=== PATIENT | female | born 1940 | race American Indian/Alaskan Native ===

== ENCOUNTER 2017-03-19 17:24 | Inpatient (IN) | payer MEDICARE ==
--- NOTE | 2017-03-19 17:51 | C.PDOC ---
History Of Present Illness Patient is a 76 y/o female, whose past medical history includes diverticulitis, HTN, and hypercholesterolemia, is sent to the emergency department by PMD, Dr. Azevedo, for admission. Patient complains of worsening left sided abdominal pain that radiates to the back since yesterday. Notes taking antibiotics but states her pain still persists. Pt was admitted here 5 months ago for Diverticulitis. Otherwise, denies any n/v/d, or fever. Time Seen by Provider: 03/19/17 17:37 Chief Complaint (Nursing): Abdominal Pain History Per: Patient History/Exam Limitations: no limitations Onset/Duration Of Symptoms: Days Current Symptoms Are (Timing): Still Present Location Of Pain/Discomfort: LUQ, LLQ Radiation Of Pain To:: Back Quality Of Discomfort: "Pain" Associated Symptoms: denies: Fever, Chills, Nausea, Vomiting, Diarrhea, Loss Of Appetite, Chest Pain, Constipation, Urinary Symptoms Exacerbating Factors: None Alleviating Factors: None Recent travel outside of the [place]: No Additional History Per: Patient Abnormal Vaginal Bleeding: No Past Medical History Reviewed: Historical Data, Nursing Documentation, Vital Signs Vital Signs: Last Vital Signs Temp 98.6 F 03/19/17 17:28 Pulse 88 03/19/17 17:28 Resp 18 03/19/17 17:28 BP 134/84 03/19/17 17:28 Pulse Ox 98 03/19/17 18:47 - Medical History PMH: Arthritis, Asthma, Bronchitis, COPD, Diverticulitis (current DX), HTN, Hypercholesterolemia, Hyperthyroidism Denies: Alzheimer's Disease, Anemia, Anxiety, Atrial Fibrillation, Bipolar Disorder, Cardia Arrhythmia, CHF, Crohn's Disease, Dementia, Depression, Emphysema, Fractures, Gastritis, Gall Bladder Disease, HIV, Hypothyroidism, Kidney Stones, Migraine, Mitral Valve Prolapse, Multiple Sclerosis, Osteoporosis , Pancreatitis, Paranoia, Parkinson's Disease, Peripheral Edema, Pneumonia, Post Traumatic Stress Disorder, Pulmonary Embolism, Chronic Kidney Disease, Rheumatoid Arthritis, Schizophrenia, Seizures, Sickle Cell Disease, Sexually Transmitted Disease, Sleep Apnea, TIA Surgical History: Cholecystectomy Denies: Appendectomy, CABG, Carotid Endarterectomy, Coronary Stent, Pacemaker , Tonsillectomy - [facility] Procedures EXCISION OF RECTUM, ENDO, DIAGN (10/14/16) EXCISION OF SMALL INTESTINE, ENDO, DIAGN (10/14/16) Family History: States: Unknown Family Hx - Social History Hx Tobacco Use: Yes Hx Alcohol Use: No Hx Substance Use: No - Immunization History Hx Tetanus Toxoid Vaccination: Yes (unsure) Hx Influenza Vaccination: Yes Hx Pneumococcal Vaccination: Yes Review Of Systems Except As Marked, All Systems Reviewed And Found Negative. Constitutional: Negative for: Fever, Chills Cardiovascular: Negative for: Chest Pain, Palpitations Respiratory: Negative for: Shortness of Breath Gastrointestinal: Positive for: Abdominal Pain. Negative for: Nausea, Vomiting , Diarrhea, Constipation Musculoskeletal: Positive for: Back Pain Skin: Negative for: Rash Neurological: Negative for: Weakness, Numbness Physical Exam - Physical Exam Appears: Non-toxic, No Acute Distress Skin: Normal Color, Warm, Dry Head: Atraumatic, Normacephalic Eye(s): bilateral: Normal Inspection Neck: Normal ROM, Supple Chest: Symmetrical Cardiovascular: Rhythm Regular, No Murmur Respiratory: Normal Breath Sounds, No Rales, No Rhonchi, No Wheezing Gastrointestinal/Abdominal: Soft, Tenderness (tenderness to left side of abdomen ), No Guarding, No Rebound Extremity: Bilateral: Atraumatic, Normal ROM Neurological/Psych: Oriented x3, Normal Speech, Normal Cognition ED Course And Treatment - Laboratory Results Result Diagrams: 03/19/17 18:17 03/19/17 18:38 Lab Interpretation: No Acute Changes ECG: Interpreted By Pa ECG Rhythm: Sinus Tachycardia, Nonspecific Changes ECG Interpretation: No Acute Changes Rate From EC O2 Sat by Pulse Oximetry: 98 Pulse Ox Interpretation: Normal Progress Note: Blood work, urinalysis, Abd & pelvis CT, EKG ordered and reviewed. Patient was treated with Morphine, Flagyl, Cipro, and IV fluids. Patient refusing contrast Reassessment Condition: Improved - Physician Consult Information Physician Contacted: Trav Azevedo Outcome Of Conversation: admit Disposition Discussed With : Trav Azevedo Doctor Will See Patient In The: Hospital - Disposition Disposition: HOSPITALIZED Disposition Time: 18:30 Condition: STABLE - POA Present On Arrival: None - Clinical Impression Clinical Impression: Abdominal pain, Diverticulitis - PA / APICULTURIST / Resident Statement MD/DO has reviewed & agrees with the documentation as recorded. - Scribe Statement The provider has reviewed the documentation as recorded by the Vinhibember Larsen All medical record entries made by the Scribe were at my direction and personally dictated by me. I have reviewed the chart and agree that the record accurately reflects my personal performance of the history, physical exam, medical decision making, and the department course for this patient. I have also personally directed, reviewed, and agree with the discharge instructions and disposition.
[2017-03-19] MEDS ORDERED: Sodium Chloride 0.9% 1,000 ML IV ONE (17:54)
[2017-03-19] MEDS ORDERED: Ciprofloxacin 400mg/200ml D5W 400 MG/200 ML BAG IV STA (17:55)
[2017-03-19] MEDS ORDERED: metroNIDAZOLE IV 500 mg/100 ml 500 MG/100 ML BAG IV SCH (18:00)
[2017-03-19] MEDS ORDERED: Ciprofloxacin 400mg/200ml D5W 400 MG/200 ML BAG IVPB ONE (18:11)
[2017-03-19] MEDS ORDERED: Morphine 4 MG/ML VIAL ONE (18:11)
[2017-03-19] MEDS ORDERED: metroNIDAZOLE IV 500 mg/100 ml 500 MG/100 ML BAG ONE (18:12)
[2017-03-19] MEDS ORDERED: Sodium Chloride 0.9% 1,000 ML ONE (18:12)
[2017-03-19 18:14] LABS: BASO % 0.7 % (0.0-2.0); EOS # 0.2 K/uL (0.0-0.7); EOS % 2.7 % (0.0-4.0); HEMOGLOBIN 13.8 g/dL (11.0-16.0); LYMPH # 1.9 K/uL (1.0-4.3); LYMPH % 31.5 % (20.0-40.0); MEAN CELL VOLUME 86.7 fL (81.0-99.0); MEAN CORPUSCULAR HEMOGLOBIN 28.2 pg (27.0-31.0); MEAN CORPUSCULAR HGB CONC 32.5 g/dL (33.0-37.0); MEAN PLATELET VOLUME 8.6 fL (7.2-11.7); MONO # 0.4 K/uL (0.0-0.8); MONO % 6.1 % (0.0-10.0); NEUT # 3.5 K/uL (1.8-7.0); RBC 4.9 Mil/uL (3.80-5.20); RED CELL DISTRIBUTION WIDTH 15.1 % (11.5-14.5)
[2017-03-19 18:16] LABS: SQUAMOUS EPITHIAL 5 /hpf (0-5); URINE BACTERIA RARE (<OCC); URINE BILIRUBIN NEGATIVE (NEGATIVE); URINE BLOOD NEGATIVE (NEGATIVE); URINE CLARITY Clear (Clear); URINE COLOR Yellow (YELLOW); URINE GLUCOSE (UA) NORMAL (Normal); URINE LEUKOCYTE ESTERASE NEG Leu/uL (Negative); URINE NITRATE NEGATIVE (NEGATIVE); URINE PROTEIN NEGATIVE (NEGATIVE); URINE UROBILINOGEN NORMAL mg/dL (0.2-1.0)
[2017-03-19 18:43] LABS: ALBUMIN 3.7 g/dL (3.5-5.0)
[2017-03-19 18:45] LABS: GFR AFRICAN-AMERICAN > 60; GFR NON-AFRICAN AMERICAN > 60
[2017-03-19 18:46] LABS: ALB/GLOB RATIO 1.1 (1.0-2.1); ALT/SGPT 19 U/L (9-52); AST/SGOT 26 U/L (14-36); BLOOD UREA NITROGEN 12 mg/dL (7-17); LIPASE 40 U/L (23-300)
[2017-03-19 18:47] LABS: CALCIUM 8.9 mg/dl (8.6-10.4)
[2017-03-19] MEDS ORDERED: Oxycodone/Acetaminophen 5/325 mg Tab PO PRN (19:27)
[2017-03-19] MEDS ORDERED: Oxycodone/Acetaminophen 5/325 mg Tab ONE (19:46)
--- NOTE | 2017-03-19 19:56 | CT ---
EXAM: CT Abdomen and Pelvis Without Intravenous Contrast CLINICAL HISTORY: 76 years old, female; Pain; Abdominal pain; Generalized TECHNIQUE: Axial computed tomography images of the abdomen and pelvis without intravenous contrast. This CT exam was performed using one or more of the following dose reduction techniques: automated exposure control, adjustment of the mA and/or kV according to patient size, and/or use of iterative reconstruction technique. Coronal and sagittal reformatted images were created and reviewed. EXAM DATE/TIME: 03/19/2017 5:55 PM COMPARISON: No relevant prior studies available. FINDINGS: LIMITATIONS: Moderate streak/motion artifact. LOWER THORAX: Coronary artery calcification. ABDOMEN: LIVER: No acute abnormality of the liver identified. GALLBLADDER AND BILE DUCTS: Cholecystectomy clips. Biliary ductal dilatation, which may be related to the post cholecystectomy state. No radiopaque common bile duct stones are visualized. Recommend correlation with LFTs as clinically indicated. PANCREAS: No CT evidence of acute pancreatitis. SPLEEN: No acute abnormality of the spleen identified. ADRENALS: No acute abnormality of the adrenal glands identified. KIDNEYS AND URETERS: No acute abnormality of the kidneys seen. STOMACH AND BOWEL: Segmental wall thickening of the proximal sigmoid colon. Mild infiltration of fat abutting the proximal sigmoid colon, near a diverticulum, with nearby mild left retroperitoneal thickening. Findings are best seen on image 78 of series 602, and are suspicious for mild acute sigmoid diverticulitis, less likely focal sigmoid colitis. Extensive diverticulosis of the colon is noted. Otherwise, no significant abnormality of the bowel is identified, allowing for motion artifact. No evidence of bowel obstruction. APPENDIX: Appendix is seen, and is within normal limits in appearance. PELVIS: BLADDER: No acute abnormality of the bladder identified. REPRODUCTIVE: No acute abnormality of the reproductive organs is seen. ABDOMEN and PELVIS: INTRAPERITONEAL SPACE: No evidence of free intraperitoneal air or fluid. BONES/JOINTS: No acute fractures or other acute bony abnormality noted. SOFT TISSUES: No acute abnormality of the visualized soft tissues is seen. VASCULATURE: No evidence of abdominal aortic aneurysm. No evidence of periaortic hemorrhage. LYMPH NODES: No evidence of diffuse lymphadenopathy. IMPRESSION: - Findings suspicious for mild acute diverticulitis of the sigmoid colon, less likely focal sigmoid colitis. No evidence of perforation or abscess formation. - See above for remaining findings.
[2017-03-19] MEDS: Ciprofloxacin 400mg/200ml D5W 400 MG/200 ML BAG IVPB SCH (20:56)
[2017-03-19] MEDS: metroNIDAZOLE IV 250mg/50 ml 250 MG/50 ML BAG IVPB SCH (21:26)
[2017-03-19] MEDS ORDERED: metroNIDAZOLE IV 500 mg/100 ml 250 MG in Premixed IV 1 EA IVPB SCH (22:00)
[2017-03-20] MEDS: Dextrose 5%/0.45% NS 1,000 ML IV SCH ×3 (00:04→19:22)
[2017-03-20] MEDS: metroNIDAZOLE IV 250mg/50 ml 250 MG/50 ML BAG IVPB SCH ×3 (05:46→23:40)
[2017-03-20 07:22] LABS: HDL CHOLESTEROL 50 mg/dL (30-70)
[2017-03-20 07:33] LABS: LDL CHOLESTEROL 106 mg/dL (0-129)
[2017-03-20] MEDS: Ciprofloxacin 400mg/200ml D5W 400 MG/200 ML BAG IVPB SCH ×2 (09:16→19:21)
--- NOTE | 2017-03-20 10:45 | CP.PCM.CON ---
History of Present Illness - History of Present Illness History of Present Illness: 76 yo AA female known to me from 10/18 admission developed two days h/o LLQ pain and constipation. CT SCan shows sigmoid diverticulitis. Had similar admission with rectal bleeding in Oct. Has not been seen in follow up. EGD at that time showed HH and gastritis. No colonoscopy was done. She was tyreated with abx but never followed up in the office as instructed. Pain is better since admission but still with spasms. Not compliant with diverticular disease diet as outpatient. Eats many nuts. Review of Systems - Constitutional Constitutional: Weight Gain - Cardiovascular Cardiovascular: absent: Chest Pain, Dyspnea, Leg Edema, Palpitations - Respiratory Respiratory: absent: Cough, Hemoptysis - Gastrointestinal Gastrointestinal: As Per HPI Past Patient History - Infectious Disease Hx of Infectious Diseases: None - Past Medical History & Family History Past Medical History?: Yes - Past Social History Smoking Status: Light Smoker < 10 Cigarettes Daily Alcohol: None Drugs: Denies Home Situation {Lives}: With Family - CARDIAC Hx Atrial Fibrillation: No Hx Cardia Arrhythmia: No Hx Congestive Heart Failure: No Hx Hypercholesterolemia: Yes Hx Hypertension: Yes Hx Mitral Valve Prolapse: No Hx Pacemaker: No Hx Peripheral Edema: No - PULMONARY Hx Asthma: Yes Hx Bronchitis: Yes Hx Chronic Obstructive Pulmonary Disease (COPD): Yes Hx Emphysema: No Hx Pneumonia: No Hx Pulmonary Embolism: No Hx Sleep Apnea: No - NEUROLOGICAL Hx Alzheimer's Disease: No Hx Dementia: No Hx Migraine: No Hx Multiple Sclerosis: No Hx Parkinson's Disease: No Hx Seizures: No Hx Transient Ischemic Attacks (TIA): No - HEENT Hx HEENT Problems: Yes Hx Blind: No Hx Cataracts: No Hx Deafness: No Hx Difficulty Chewing: No Hx Epistaxis: No Hx Glaucoma: No Hx Macular Degeneration: No Other/Comment: poor vision without eyeglasses - RENAL Hx Chronic Kidney Disease: No Hx Kidney Stones: No - ENDOCRINE/METABOLIC Hx Hyperthyroidism: Yes Hx Hypothyroidism: No - HEMATOLOGICAL/ONCOLOGICAL Hx Anemia: No Hx Cirrhosis: No Hx Hepatitis A: No Hx Hepatitis B: No Hx Hepatitis C: No Hx Human Immunodeficiency Virus (HIV): No Hx Sickle Cell Disease: No - INTEGUMENTARY Hx Dermatological Problems: No Hx Basil Cell: No Hx Lala: No Hx Cellulitis: No Hx Eczema: No Hx Melanoma: No Hx Psoriasis: No Hx Squamous Cell: No - MUSCULOSKELETAL/RHEUMATOLOGICAL Hx Falls: No - GASTROINTESTINAL Hx Gastrointestinal Disorders: Yes Hx Bowel Surgery: No Hx Clostridium Difficile: No Hx Colitis: No Hx Colostomy: No Hx Constipation: Yes Hx Crohn's Disease: No Hx Diarrhea: No Hx Diverticulitis: Yes (admitted in 10/2016) Hx Esophageal Varices: No Hx Fatty Liver Disease: No Hx Gall Bladder Disease: No Hx Gastritis: Yes Hx Gastroesophageal Reflux: Yes Hx Hemorrhoids: No Hx Ileostomy: No Hx Irritable Bowel: No Hx Liver Failure: No Hx Nausea: No Hx Pancreatitis: No HX Swallowing Problems: No Hx Ulcer: No Hx Vomiting: No - GENITOURINARY/GYNECOLOGICAL Hx Genitourinary Disorders: No Hx Sexually Transmitted Disorders: No - PSYCHIATRIC Hx Substance Use: No - SURGICAL HISTORY Hx Appendectomy: No Hx Carotid Endarterectomy: No Hx Cholecystectomy: Yes Hx Coronary Artery Bypass Graft: No Hx Coronary Stent: No Hx Tonsillectomy: No - ANESTHESIA Hx Anesthesia: Yes Hx Anesthesia Reactions: No Hx Malignant Hyperthermia: No Meds Allergies/Adverse Reactions: Allergies Allergy/AdvReac Type Severity Reaction Status Date / Time azithromycin Allergy Intermediate ITCHING Verified 03/19/17 17:33 Penicillins Allergy Verified 03/19/17 17:33 Sulfa (Sulfonamide Allergy Verified 03/19/17 17:33 Antibiotics) piperacillin sodium AdvReac Verified 03/19/17 17:33 [From Zosyn] tazobactam sodium AdvReac Verified 03/19/17 17:33 [From Zosyn] steroids Allergy Severe RASH Uncoded 03/19/17 17:33 - Medications Medications: Current Medications Heparin Sodium (Porcine) (Heparin) 5,000 units SC Q12 ALEXANDRA Last Admin: 03/20/17 09:26 Dose: 5,000 units Ciprofloxacin (Cipro 400mg/200ml Dsw) 400 mg in 200 mls @ 133 mls/hr IVPB Q12H ALEXANDRA Last Admin: 03/20/17 09:16 Dose: 133 mls/hr Metronidazole (Flagyl) 250 mg in 50 mls @ 100 mls/hr IVPB Q8 ALEXANDRA Stop: 03/24/17 22:01 Last Admin: 03/20/17 05:46 Dose: 100 mls/hr Dextrose/Sodium Chloride (Dextrose 5%/0.45% Ns 1000 Ml) 1,000 mls @ 75 mls/hr IV .[id number] [facility] Last Admin: 03/20/17 00:04 Dose: 75 mls/hr Oxycodone/Acetaminophen (Percocet 5/325 Mg Tab) 1 tab PO Q6H PRN PRN Reason: abdominal pain Stop: 03/22/17 19:28 Last Admin: 03/19/17 19:48 Dose: 1 tab Pantoprazole Sodium (Protonix Inj) 40 mg IVP DAILY [facility] Last Admin: 03/20/17 09:17 Dose: 40 mg Physical Exam - Constitutional Appears: No Acute Distress - Head Exam Head Exam: ATRAUMATIC, NORMOCEPHALIC - Eye Exam Eye Exam: EOMI, PERRL - Respiratory Exam Respiratory Exam: NORMAL BREATHING PATTERN - Cardiovascular Exam Cardiovascular Exam: REGULAR RHYTHM, +S1 - GI/Abdominal Exam GI & Abdominal Exam: Normal Bowel Sounds, Soft. absent: Distended, Mass, Rebound, Rigid, Tenderness - Rectal Exam Rectal Exam: Deferred - Extremities Exam Extremities exam: Positive for: normal inspection - Back Exam Back exam: NORMAL INSPECTION - Neurological Exam Neurological exam: Alert, Oriented x3 - Psychiatric Exam Psychiatric exam: Normal Affect, Normal Mood - Skin Skin Exam: Dry, Warm Results - Vital Signs Recent Vital Signs: Last Vital Signs Temp 97.6 F 03/20/17 07:56 Pulse 63 03/20/17 07:56 Resp 20 03/20/17 07:56 BP 149/80 03/20/17 00:00 Pulse Ox 95 03/20/17 07:56 - Labs Result Diagrams: 03/19/17 18:17 03/19/17 18:38 Labs: Laboratory Results - last 24 hr 03/19/17 03/19/17 03/20/17 18:19 18:38 06:25 ESR Sodium 144 Potassium 4.0 Chloride 104 Carbon Dioxide 28 Anion Gap 16 BUN 12 Creatinine 0.9 Est GFR ( Amer) > 60 Est GFR (Non-Af Amer) > 60 Random Glucose 112 H Hemoglobin A1c 6.8 H Calcium 8.9 Total Bilirubin 0.6 AST 26 ALT 19 Alkaline Phosphatase 70 Total Protein 7.1 Albumin 3.7 Globulin 3.4 Albumin/Globulin Ratio 1.1 Triglycerides Cholesterol LDL Cholesterol Direct HDL Cholesterol Lipase 40 Free T4 Urine Color Yellow Urine Clarity Clear Urine pH 5.0 Ur Specific [place] 1.020 Urine Protein Negative Urine Glucose (UA) Normal Urine Ketones Negative Urine Blood Negative Urine Nitrate Negative Urine Bilirubin Negative Urine Urobilinogen Normal Ur Leukocyte Esterase Neg Urine WBC (Auto) < 1 Urine RBC (Auto) 2 Ur Squamous Epith Cells 5 Urine Bacteria Rare 03/20/17 03/20/17 03/20/17 06:25 06:25 06:25 ESR 28 H Sodium Potassium Chloride Carbon Dioxide Anion Gap BUN Creatinine Est GFR ( Amer) Est GFR (Non-Af Amer) Random Glucose Hemoglobin A1c Calcium Total Bilirubin AST ALT Alkaline Phosphatase Total Protein Albumin Globulin Albumin/Globulin Ratio Triglycerides 52 D Cholesterol 175 LDL Cholesterol Direct 106 HDL Cholesterol 50 Lipase Free T4 0.54 L Urine Color Urine Clarity Urine pH Ur Specific [place] Urine Protein Urine Glucose (UA) Urine Ketones Urine Blood Urine Nitrate Urine Bilirubin Urine Urobilinogen Ur Leukocyte Esterase Urine WBC (Auto) Urine RBC (Auto) Ur Squamous Epith Cells Urine Bacteria - Imaging and Cardiology CT scan - abdomen Status: Image reviewed by me, Report reviewed by me Assessment & Plan (1) LLQ abdominal pain Assessment and Plan: as below Status: Acute (2) GERD (gastroesophageal reflux disease) Assessment and Plan: GERD diet and PPI as needed No current symptoms Status: Chronic (3) Diverticulitis Assessment and Plan: Agree with IV antibiotics until pain free and then continue po for 10-14 day course Begin clear liquids and advance diet. Will need colonoscopy as outpatient in 8 weeks. Will be encouraged to follow up with me after discharge (discussed with Dr Azevedo at bedside as well) Status: Acute
[2017-03-20 14:57] LABS: ALBUMIN 3.1 g/dL (3.5-5.0)
[2017-03-20 15:00] LABS: ALB/GLOB RATIO 1.1 (1.0-2.1); ALT/SGPT 51 U/L (9-52); AST/SGOT 75 U/L (14-36); BLOOD UREA NITROGEN 10 mg/dL (7-17); GFR AFRICAN-AMERICAN > 60; GFR NON-AFRICAN AMERICAN > 60
[2017-03-20 15:01] LABS: CALCIUM 7.9 mg/dl (8.6-10.4)
[2017-03-20 15:23] LABS: AMYLASE 40 U/L (30-110); LIPASE 22 U/L (23-300)
--- NOTE | 2017-03-20 15:23 | CP.PCM.CON ---
History of Present Illness - History of Present Illness History of Present Illness: 76yr old AA descent lady was seen today as she was admitted with severe abdominal pain and she says she was severely ill yesterday,today she feels little better. She says she ate spicy food as she attended a barbeque on Friday and ate same spicy food on Friday. She seems to not know that fruits with tiny seeds and nuts to be avoided. She likes Hot dogs. She denies any constipation She says she had similar episode in October and got better, She did not follow with GI at that time.She deneis any nausea ,vomiting at present and was started on clear liquids.She also says she may have had something before 25 yrs Review of Systems - Constitutional Constitutional: absent: As Per HPI, Anorexia, Chills, Daytime Sleepiness, Excessive Sweating, Fatigue, Fever, Frequent Falls, Headache, Increased Appetite , Lethargy, Malaise, Night Sweats, Snoring, Sleep Apnea, Weight Gain, Weight Loss, Weakness, Other - EENT Eyes: absent: As Per HPI, Blind Spots, Blurred Vision, Change in Vision, Decreased Night Vision, Diplopia, Discharge, Dry Eye, Exophthalmos, Floaters, Irritation, Itchy Eyes, Loss of Peripheral Vision, Pain, Photophobia, Requires Corrective Lenses, Sees Flashes, Spots in Vision, Tunnel Vision, Other Visual Disturbances, Loss of Vision, Other Nose/Mouth/Throat: absent: As Per HPI, Epistaxis, Nasal Congestion, Nasal Discharge, Nasal Obstruction, Nasal Trauma, Nose Pain, Post Nasal Drip, Sinus Pain, Sinus Pressure, Bleeding Gums, Change in Voice, Dental Pain, Dry Mouth, Dysphagia, Halitosis, Hoarsness, Lip Swelling, Mouth Lesions, Mouth Pain, Odynophagia, Sore Throat, Throat Swelling, Tongue Swelling, Facial Pain, Neck Pain, Neck Mass, Other - Cardiovascular Cardiovascular: absent: As Per HPI, Acrocyanosis, Chest Pain, Chest Pain at Rest , Chest Pain with Activity, Claudication, Diaphoresis, Dyspnea, Dyspnea on Exertion, Edema, Irregular Heart Rhythm, Pain Radiating to Arm/Neck/Jaw, Leg Edema, Leg Ulcers, Lightheadedness, Orthopnea, Palpitations, Paroxysmal Nocturnal Dyspnea, Pedal Edema, Radiating Pain, Rapid Heart Rate, Slow Heart Rate, Syncope, Other - Respiratory Respiratory: absent: As Per HPI, Cough, Dyspnea, Hemoptysis, Dyspnea on Exertion , Wheezing, Snoring, Stridor, Pain on Inspiration, Chest Congestion, Excessive Mucous Production, Change in Mucous Color, Pain with Coughing, Other - Gastrointestinal Gastrointestinal: Abdominal Pain, Cramping. absent: As Per HPI, Belching, Bloating, Change in Bowel Habits, Change in Stool Character, Coffee Ground Emesis, Constipation, Diarrhea, Dyspepsia, Dysphagia, Early Satiety, Excessive Flatus, Fecal Incontinence, Heartburn, Hematemesis, Hematochezia, Loose Stools, Melena, Nausea, Odynophagia, Temesmus, Vomiting, Other - Genitourinary Genitourinary: absent: As Per HPI, Change in Urinary Stream, Difficulty Urinating, Dysuria, Flank Pain, Hematuria, Pyuria, Nocturia, Urinary Incontinence, Urinary Frequency, Urinary Hesitance, Urinary Urgency, Voiding Freq/Small Amts, Freq UTI, Hx Renal/Bladder Calculi, Hx /Renal Surgery, Bladder Distension, Other - Reproductive: Female Reproductive:Female: Post Menopausal Additional comments: n/a - Musculoskeletal Musculoskeletal: absent: As Per HPI, Abnormal Gait, Arthralgias, Atrophy, Back Pain, Deformity, Joint Swelling, Limited Range of Motion, Loss of Height, Muscle Cramps, Muscle Weakness, Myalgias, Neck Pain, Numbness, Radiating Pain into Limb, Stiffness, Tingling, Other - Integumentary Integumentary: absent: As Per HPI, Acne, Alopecia, Bleeding Lesions, Change in Hair, Change in Nails, Change in Pigmentation, Changing Lesions, Dry Skin, Erythema, Furuncle, Hirsutism, Lesions, New Lesions, Non-Healing Lesions, Photosensitivity, Pruritus, Rash, Skin Pain, Skin Ulcer, Sores, Striae, Swelling , Unusual Bruising, Wounds, Jaundice, Other - Neurological Neurological: absent: As Per HPI, Abnormal Gait, Abnormal Hearing, Abnormal Movements, Abnormal Speech, Behavioral Changes, Burning Sensations, Confusion, Convulsions, Disequilibrium, Dizziness, Numbness, Focal Weakness, Frequent Falls , Headaches, Lack of Coordination, Loss of Vision, Memory Loss, Paresthesias, Radicular Pain, Restless Legs, Sensory Deficit, Syncope, Tingling, Tremor, Vertigo, Weakness, Other Visual Disturbances, Other - Psychiatric Psychiatric: absent: As Per HPI, Abnormal Sleep Pattern, Anhedonia, Anxiety, Auditory Hallucinations, Behavioral Changes, Change in Appetite, Change in Libido, Confusion, Depression, Difficulty Concentrating, Hallucinations, Homicidal Ideation, Hopelessness, Irritability, Memory Loss, Mood Swings, Panic Attacks, Paranoia, Suicidal Ideation, Visual Hallucinations, Tactile Hallucinations, Other - Endocrine Endocrine: absent: As Per HPI, Change in Body Appearance, Change in Libido, Cold Intolorance, Deepening of Voice, Excessive Sweating, Fatigue, Flushing, Heat Intolorance, Increase in Ring/Shoe/Hat Size, Palpitations, Polydipsia, Polyphagia, Polyuria, Other - Hematologic/Lymphatic Hematologic: absent: As Per HPI, Easy Bleeding, Easy Bruising, Lymphadenopathy, Other Past Patient History - Infectious Disease Hx of Infectious Diseases: None - Past Medical History & Family History Past Medical History?: Yes - Past Social History Smoking Status: Light Smoker < 10 Cigarettes Daily Alcohol: None Drugs: Denies Home Situation {Lives}: With Family - CARDIAC Hx Atrial Fibrillation: No Hx Cardia Arrhythmia: No Hx Congestive Heart Failure: No Hx Hypercholesterolemia: Yes Hx Hypertension: Yes Hx Mitral Valve Prolapse: No Hx Pacemaker: No Hx Peripheral Edema: No - PULMONARY Hx Asthma: Yes Hx Bronchitis: Yes Hx Chronic Obstructive Pulmonary Disease (COPD): Yes Hx Emphysema: No Hx Pneumonia: No Hx Pulmonary Embolism: No Hx Sleep Apnea: No - NEUROLOGICAL Hx Alzheimer's Disease: No Hx Dementia: No Hx Migraine: No Hx Multiple Sclerosis: No Hx Parkinson's Disease: No Hx Seizures: No Hx Transient Ischemic Attacks (TIA): No - HEENT Hx HEENT Problems: Yes Hx Blind: No Hx Cataracts: No Hx Deafness: No Hx Difficulty Chewing: No Hx Epistaxis: No Hx Glaucoma: No Hx Macular Degeneration: No Other/Comment: poor vision without eyeglasses - RENAL Hx Chronic Kidney Disease: No Hx Kidney Stones: No - ENDOCRINE/METABOLIC Hx Hyperthyroidism: Yes Hx Hypothyroidism: No - HEMATOLOGICAL/ONCOLOGICAL Hx Anemia: No Hx Cirrhosis: No Hx Hepatitis A: No Hx Hepatitis B: No Hx Hepatitis C: No Hx Human Immunodeficiency Virus (HIV): No Hx Sickle Cell Disease: No - INTEGUMENTARY Hx Dermatological Problems: No Hx Basil Cell: No Hx Lala: No Hx Cellulitis: No Hx Eczema: No Hx Melanoma: No Hx Psoriasis: No Hx Squamous Cell: No - MUSCULOSKELETAL/RHEUMATOLOGICAL Hx Falls: No - GASTROINTESTINAL Hx Gastrointestinal Disorders: Yes Hx Bowel Surgery: No Hx Clostridium Difficile: No Hx Colitis: No Hx Colostomy: No Hx Constipation: Yes Hx Crohn's Disease: No Hx Diarrhea: No Hx Diverticulitis: Yes (admitted in 10/2016) Hx Esophageal Varices: No Hx Fatty Liver Disease: No Hx Gall Bladder Disease: No Hx Gastritis: Yes Hx Gastroesophageal Reflux: Yes Hx Hemorrhoids: No Hx Ileostomy: No Hx Irritable Bowel: No Hx Liver Failure: No Hx Nausea: No Hx Pancreatitis: No HX Swallowing Problems: No Hx Ulcer: No Hx Vomiting: No - GENITOURINARY/GYNECOLOGICAL Hx Genitourinary Disorders: No Hx Sexually Transmitted Disorders: No - PSYCHIATRIC Hx Substance Use: No - SURGICAL HISTORY Hx Appendectomy: No Hx Carotid Endarterectomy: No Hx Cholecystectomy: Yes Hx Coronary Artery Bypass Graft: No Hx Coronary Stent: No Hx Tonsillectomy: No - ANESTHESIA Hx Anesthesia: Yes Hx Anesthesia Reactions: No Hx Malignant Hyperthermia: No Meds Home Medications: Home Medication List Medication Instructions Recorded Confirmed Type Doxycycline Monohydrate [Mondoxyne 100 mg PO BID #20 capsule 03/22/17 Rx Nl] Allergies/Adverse Reactions: Allergies Allergy/AdvReac Type Severity Reaction Status Date / Time azithromycin Allergy Intermediate ITCHING Verified 03/19/17 17:33 Penicillins Allergy Verified 03/19/17 17:33 Sulfa (Sulfonamide Allergy Verified 03/19/17 17:33 Antibiotics) ciprofloxacin [From Cipro] AdvReac ITCHING Verified 03/21/17 11:41 piperacillin sodium AdvReac Verified 03/19/17 17:33 [From Zosyn] tazobactam sodium AdvReac Verified 03/19/17 17:33 [From Zosyn] steroids Allergy Severe RASH Uncoded 03/19/17 17:33 - Medications Medications: Current Medications Heparin Sodium (Porcine) (Heparin) 5,000 units SC Q12 [facility] Last Admin: 03/20/17 09:26 Dose: 5,000 units Ciprofloxacin (Cipro 400mg/200ml Dsw) 400 mg in 200 mls @ 133 mls/hr IVPB Q12H [facility] Last Admin: 03/20/17 09:16 Dose: 133 mls/hr Metronidazole (Flagyl) 250 mg in 50 mls @ 100 mls/hr IVPB Q8 [facility] Stop: 03/24/17 22:01 Last Admin: 03/20/17 13:29 Dose: 100 mls/hr Dextrose/Sodium Chloride (Dextrose 5%/0.45% Ns 1000 Ml) 1,000 mls @ 75 mls/hr IV .[id number] [facility] Last Admin: 03/20/17 12:40 Dose: Not Given Oxycodone/Acetaminophen (Percocet 5/325 Mg Tab) 1 tab PO Q6H PRN PRN Reason: abdominal pain Stop: 03/22/17 19:28 Last Admin: 03/19/17 19:48 Dose: 1 tab Pantoprazole Sodium (Protonix Inj) 40 mg IVP DAILY [facility] Last Admin: 03/20/17 09:17 Dose: 40 mg Physical Exam - Constitutional Appears: No Acute Distress - Head Exam Head Exam: ATRAUMATIC, NORMOCEPHALIC - Eye Exam Eye Exam: Normal appearance, PERRL. absent: Conjunctival injection, EOMI, Nystagmus, Periorbital swelling, Periorbital tenderness, Scleral icterus Pupil Exam: NORMAL ACCOMODATION. absent: Fixed, Irregular, Miosis, Mydriatic, PERRL, Unequal - ENT Exam ENT Exam: Mucous Membranes Moist. absent: Mucous Membranes Dry, Normal Exam, Normal External Ear Exam, Normal Oropharynx, TM's Normal Bilaterally - Neck Exam Neck exam: Negative for: Full Rom, Lymphadenopathy, Meningismus, Normal Inspection, Tenderness, Thyromegaly - Respiratory Exam Respiratory Exam: Clear to Auscultation Bilateral, NORMAL BREATHING PATTERN. absent: Accessory Muscle Use, Chest Wall Tenderness, Decreased Breath Sounds, Prolonged Expiratory Phase, Rales, Rhonchi, Wheezes, Respiratory Distress, Stridor - Cardiovascular Exam Cardiovascular Exam: REGULAR RHYTHM, RRR. absent: Bradycardia, Tachycardia, Clicks, Diastolic murmur, Gallop, Irregular Rhythm, JVD, Rubs, +S1, +S2, +S4, Systolic Murmur - GI/Abdominal Exam GI & Abdominal Exam: Diminished Bowel Sounds, Soft Additional comments: left lower quadrant complains of pain,no tenderness Results - Vital Signs Recent Vital Signs: Last Vital Signs Temp 97.6 F 03/20/17 07:56 Pulse 63 03/20/17 07:56 Resp 20 03/20/17 07:56 BP 149/80 03/20/17 00:00 Pulse Ox 95 03/20/17 07:56 - Labs Result Diagrams: 03/22/17 07:12 03/22/17 07:12 Labs: Laboratory Results - last 24 hr 03/19/17 03/19/17 03/20/17 18:19 18:38 06:25 ESR Sodium 144 Potassium 4.0 Chloride 104 Carbon Dioxide 28 Anion Gap 16 BUN 12 Creatinine 0.9 Est GFR ( Amer) > 60 Est GFR (Non-Af Amer) > 60 Random Glucose 112 H Hemoglobin A1c 6.8 H Calcium 8.9 Total Bilirubin 0.6 AST 26 ALT 19 Alkaline Phosphatase 70 Total Protein 7.1 Albumin 3.7 Globulin 3.4 Albumin/Globulin Ratio 1.1 Triglycerides Cholesterol LDL Cholesterol Direct HDL Cholesterol Lipase 40 Free T4 Urine Color Yellow Urine Clarity Clear Urine pH 5.0 Ur Specific [place] 1.020 Urine Protein Negative Urine Glucose (UA) Normal Urine Ketones Negative Urine Blood Negative Urine Nitrate Negative Urine Bilirubin Negative Urine Urobilinogen Normal Ur Leukocyte Esterase Neg Urine WBC (Auto) < 1 Urine RBC (Auto) 2 Ur Squamous Epith Cells 5 Urine Bacteria Rare 03/20/17 03/20/17 03/20/17 06:25 06:25 06:25 ESR 28 H Sodium 139 Potassium 3.7 Chloride 105 Carbon Dioxide 24 Anion Gap 14 BUN 10 Creatinine 0.9 Est GFR ( Amer) > 60 Est GFR (Non-Af Amer) > 60 Random Glucose Hemoglobin A1c Calcium Total Bilirubin 0.4 AST 75 H D ALT 51 Alkaline Phosphatase 67 Total Protein 6.0 L Albumin 3.1 L Globulin 2.9 Albumin/Globulin Ratio 1.1 Triglycerides 52 D Cholesterol 175 LDL Cholesterol Direct 106 HDL Cholesterol 50 Lipase Free T4 0.54 L Urine Color Urine Clarity Urine pH Ur Specific [place] Urine Protein Urine Glucose (UA) Urine Ketones Urine Blood Urine Nitrate Urine Bilirubin Urine Urobilinogen Ur Leukocyte Esterase Urine WBC (Auto) Urine RBC (Auto) Ur Squamous Epith Cells Urine Bacteria - Imaging and Cardiology CT scan - abdomen Status: Report reviewed by me Assessment & Plan (1) Abdominal pain Status: Acute (2) Diverticulitis Assessment and Plan: patient is allergic to multiple meds hence will continue with iv antibiotics for now and will follow with GI and Dr Azevedo Status: Acute (3) COPD (chronic obstructive pulmonary disease) Status: Chronic - Assessment and Plan (Free Text) Assessment: patient continued on iv antibiotics will follow GI evaluation
[2017-03-20] MEDS ORDERED: DiphenhydrAMINE 50 mg/ml Inj IVP STA (21:45)
[2017-03-21] MEDS: Dextrose 5%/0.45% NS 1,000 ML IV SCH ×2 (01:45→15:40)
--- NOTE | 2017-03-21 04:57 | HP ---
HISTORY OF PRESENT ILLNESS: This is a 76-year-old female with history of COPD, hypertension, and history of multinodular goiter and diverticulosis. Patient came to my office and was complaining of abdominal pain mainly to the left lower quadrant of the abdomen and complaining of nausea and denies any vomiting, but anorexia. SOCIAL HISTORY: Patient is smoking and drinking occasionally alcohol, and also has children. FAMILY HISTORY: No inherited disease. Father and mother a long time ago. MEDICATIONS: Patient was taking medications including Flagyl and Levaquin and Tapazole. REVIEW OF SYSTEMS: RESPIRATORY: Positive for occasional congestive cough. CARDIOVASCULAR: No chest pain. GI: Abdominal pain and nausea. : No dysuria. NEUROLOGIC: Patient is weak. PHYSICAL EXAMINATION: GENERAL: Patient is alert, awake, and oriented x3. VITAL SIGNS: Blood pressure was 135/90, pulse 62, respiration is 20, temperature 97.7. NECK: Supple but a *------* firm multinodular notch in the thyroid. LUNGS: Clear. HEART: Regular rate and rhythm. ABDOMEN: Soft. Tenderness in left flank with rebound tenderness. EXTREMITIES: There is no edema. LABORATORY DATA: Patient had some blood tests done. WBC was 6, hemoglobin 12.8, hematocrit 42.6, and platelet 200. ESR is 28. Chemistry: Sodium 144, potassium 4, chloride 104, bicarbonate is 28, BUN 12, creatinine 0.9, glucose 112, calcium 8.9. AST 26, ALT 19, alkaline phosphatase 70, total potassium 7.1, albumin 3.7, globulin 3.4. The lipase is 40. Patient also had a CAT scan of the abdomen *------* diverticulitis of the sigmoid colon, less likely focal sigmoid colitis. No evidence of perforation or abscess formation. ASSESSMENT AND PLAN: Patient will be admitted with diagnoses of diverticulitis , hypothyroidism, hypertension, COPD. Patient will have a consult with Dr. Davis of GI and also will have a consult with Dr. Jason of ID. Case was studied and reviewed with Marixa Laughlin, the nurse practitioner. Trav Azevedo MD
[2017-03-21] MEDS: metroNIDAZOLE IV 250mg/50 ml 250 MG/50 ML BAG IVPB SCH ×3 (06:44→21:18)
[2017-03-21 07:29] LABS: MEAN CELL VOLUME 86.5 fL (81.0-99.0); MEAN CORPUSCULAR HEMOGLOBIN 27.5 pg (27.0-31.0); MEAN CORPUSCULAR HGB CONC 31.8 g/dL (33.0-37.0); MEAN PLATELET VOLUME 9.4 fL (7.2-11.7); RBC 4.73 Mil/uL (3.80-5.20); RED CELL DISTRIBUTION WIDTH 14.7 % (11.5-14.5); WHITE BLOOD COUNT 4.9 K/uL (4.8-10.8)
[2017-03-21 08:17] LABS: BLOOD UREA NITROGEN 7 mg/dL (7-17); GFR AFRICAN-AMERICAN > 60; GFR NON-AFRICAN AMERICAN > 60
[2017-03-21 08:18] LABS: CALCIUM 8.5 mg/dl (8.6-10.4)
--- NOTE | 2017-03-21 12:37 | CP.PCM.PN ---
Subjective - Date & Time of Evaluation Date of Evaluation: 03/21/17 Time of Evaluation: 12:35 - Subjective Subjective: No pain and tolerating liquids. Having normal bowel movements, No bleeding. Objective - Vital Signs/Intake and Output Vital Signs (last 24 hours): Temp Pulse Resp BP Pulse Ox 98.2 F 63 20 136/87 97 03/21/17 08:00 03/21/17 08:00 03/21/17 08:00 03/21/17 08:00 03/21/17 08:00 Intake and Output: 03/21/17 03/21/17 06:59 18:59 Intake Total 1600 Balance 1600 - Medications Medications: Current Medications Heparin Sodium (Porcine) (Heparin) 5,000 units SC Q12 [facility] Last Admin: 03/21/17 09:27 Dose: 5,000 units Metronidazole (Flagyl) 250 mg in 50 mls @ 100 mls/hr IVPB Q8 [facility] Stop: 03/24/17 22:01 Last Admin: 03/21/17 06:44 Dose: 100 mls/hr Dextrose/Sodium Chloride (Dextrose 5%/0.45% Ns 1000 Ml) 1,000 mls @ 75 mls/hr IV .[id number] [facility] Last Admin: 03/21/17 01:45 Dose: Not Given Tigecycline 50 mg/ Sodium (Chloride) 100 mls @ 100 mls/hr IVPB Q12H [facility] Oxycodone/Acetaminophen (Percocet 5/325 Mg Tab) 1 tab PO Q6H PRN PRN Reason: abdominal pain Stop: 03/22/17 19:28 Last Admin: 03/19/17 19:48 Dose: 1 tab Pantoprazole Sodium (Protonix Inj) 40 mg IVP DAILY [facility] Last Admin: 03/21/17 09:28 Dose: 40 mg - Labs Labs: 03/21/17 07:16 03/21/17 07:16 - Constitutional Appears: No Acute Distress - Head Exam Head Exam: ATRAUMATIC, NORMOCEPHALIC - Eye Exam Eye Exam: EOMI, PERRL - Respiratory Exam Respiratory Exam: NORMAL BREATHING PATTERN - Cardiovascular Exam Cardiovascular Exam: REGULAR RHYTHM - GI/Abdominal Exam GI & Abdominal Exam: Soft, Normal Bowel Sounds. absent: Guarding, Tenderness, Mass, Rebound - Exam External exam: NORMAL EXTERNAL EXAM Assessment and Plan (1) LLQ abdominal pain Status: Resolved (2) GERD (gastroesophageal reflux disease) Status: Chronic (3) Diverticulitis Assessment & Plan: Advance diet as tolerated Switch to po antibiotics selection per ID and continue for 10-14 day course Out patient follow up with me. Unclear if colonoscopy was done within the last year. May have been done elsewhere. Status: Acute
[2017-03-21] MEDS ORDERED: Albuterol 0.083% Inhal Sol (2.5 mg/3 mL) UD INH PRN (15:57)
[2017-03-21] MEDS: Potassium Chloride 20 mEq ER Tab PO ONE ×2 (16:44→21:25)
[2017-03-21] MEDS: Pantoprazole 40 mg EC Tab PO SCH (16:45)
[2017-03-21] MEDS: Metoprolol Succinate 25 mg XL Tab PO SCH (16:50)
--- NOTE | 2017-03-21 17:23 | CP.PCM.PN ---
Subjective - Date & Time of Evaluation Date of Evaluation: 03/21/17 Time of Evaluation: 05:20 - Subjective Subjective: Patient had lot of itching after the dose was started last night and nurse gave benadryl and was called as she did not want cipor. This pt has multiple drug allergies and was finally started on tygacil. She feels betetr today but had nausea earlier even prior to tygacil was infused. She has no blood in stool.was seen by gi and will need to be told about food to avoid Objective - Vital Signs/Intake and Output Vital Signs (last 24 hours): Temp Pulse Resp BP Pulse Ox 98.1 F 69 20 139/73 96 03/21/17 16:00 03/21/17 16:00 03/21/17 16:00 03/21/17 16:00 03/21/17 16:00 Intake and Output: 03/21/17 03/21/17 06:59 18:59 Intake Total 1600 800 Balance 1600 800 - Medications Medications: Current Medications Albuterol Sulfate (Albuterol 0.083% Inhal [place] (2.5 Mg/3 Ml) Ud) 2.5 mg INH RQID PRN PRN Reason: Wheezing Allopurinol (Zyloprim) 300 mg PO DAILY PRN PRN Reason: Pain, Mild (1-3) Amlodipine Besylate (Norvasc) 5 mg PO DAILY [facility] Last Admin: 03/21/17 16:45 Dose: 5 mg Aspirin (Ecotrin) 81 mg PO DAILY [facility] Last Admin: 03/21/17 16:45 Dose: 81 mg Heparin Sodium (Porcine) (Heparin) 5,000 units SC Q12 [facility] Last Admin: 03/21/17 09:27 Dose: 5,000 units Metronidazole (Flagyl) 250 mg in 50 mls @ 100 mls/hr IVPB Q8 [facility] Stop: 03/24/17 22:01 Last Admin: 03/21/17 14:08 Dose: 100 mls/hr Dextrose/Sodium Chloride (Dextrose 5%/0.45% Ns 1000 Ml) 1,000 mls @ 75 mls/hr IV .[id number] [facility] Last Admin: 03/21/17 01:45 Dose: Not Given Tigecycline 50 mg/ Sodium (Chloride) 100 mls @ 100 mls/hr IVPB Q12H [facility] Losartan Potassium (Cozaar) 100 mg PO DAILY [facility] Metoprolol Succinate (Toprol Xl) 25 mg PO DAILY [facility] Last Admin: 03/21/17 16:50 Dose: Not Given Oxycodone/Acetaminophen (Percocet 5/325 Mg Tab) 1 tab PO Q6H PRN PRN Reason: abdominal pain Stop: 03/22/17 19:28 Last Admin: 03/19/17 19:48 Dose: 1 tab Pantoprazole Sodium (Protonix Inj) 40 mg IVP DAILY [facility] Last Admin: 03/21/17 09:28 Dose: 40 mg Pantoprazole Sodium (Protonix Ec Tab) 40 mg PO DAILY [facility] Last Admin: 03/21/17 16:45 Dose: 40 mg Rosuvastatin Calcium (Crestor) 10 mg PO HS [facility] Tiotropium [place] (Spiriva) 18 mcg INH RQ24 [facility] - Labs Labs: 03/21/17 07:16 03/21/17 07:16 - Constitutional Appears: No Acute Distress - Head Exam Head Exam: ATRAUMATIC, NORMOCEPHALIC - Eye Exam Eye Exam: Normal appearance - ENT Exam ENT Exam: Mucous Membranes Moist, Normal Exam - Neck Exam Neck Exam: Normal Inspection - Respiratory Exam Respiratory Exam: Clear to Ausculation Bilateral. absent: Accessory Muscle Use , Chest Wall Tenderness, Decreased Breath Sounds, Prolonged Expiratory Phase, Rales, Rhonchi, Wheezes, Respiratory Distress, Stridor, NORMAL BREATHING PATTERN - Cardiovascular Exam Cardiovascular Exam: REGULAR RHYTHM, RRR. absent: Bradycardia, Tachycardia, Clicks, Diastolic murmur, Gallop, Irregular Rhythm, JVD, Rubs, +S1, +S2, +S4, Murmur - GI/Abdominal Exam GI & Abdominal Exam: Soft, Normal Bowel Sounds. absent: Bruit, Distended, Firm , Guarding, Rigid, Tenderness, Diminished Bowel Sounds, Hernia, Hyperactive Bowel Sounds, Hypoactive Bowel Sounds, Organomegaly, Pulsatile Mass, Rebound, Mass - Extremities Exam Extremities Exam: Normal Inspection Assessment and Plan (1) Abdominal pain Status: Acute (2) Diverticulitis Status: Acute (3) Allergy to antibacterial drug Status: Acute - Assessment and Plan (Free Text) Assessment: to continue tygacil,will dc flagyl . she wants to go home on friday hopefully will be able to go on doxycycline as I cant think of another oral medication to send her on
[2017-03-22] MEDS: Dextrose 5%/0.45% NS 1,000 ML IV SCH (04:48)
[2017-03-22] MEDS: metroNIDAZOLE IV 250mg/50 ml 250 MG/50 ML BAG IVPB SCH ×2 (05:11→13:54)
[2017-03-22 07:44] LABS: BLOOD UREA NITROGEN 10 mg/dL (7-17); CALCIUM 8.4 mg/dl (8.6-10.4); GFR AFRICAN-AMERICAN > 60; GFR NON-AFRICAN AMERICAN > 60
[2017-03-22 07:47] LABS: HEMOGLOBIN 13.3 g/dL (11.0-16.0); MEAN CELL VOLUME 87.1 fL (81.0-99.0); MEAN CORPUSCULAR HEMOGLOBIN 28.2 pg (27.0-31.0); MEAN CORPUSCULAR HGB CONC 32.4 g/dL (33.0-37.0); MEAN PLATELET VOLUME 9.1 fL (7.2-11.7); RBC 4.73 Mil/uL (3.80-5.20); RED CELL DISTRIBUTION WIDTH 14.9 % (11.5-14.5); WHITE BLOOD COUNT 5.2 K/uL (4.8-10.8)
[2017-03-22] MEDS ORDERED: Tiotropium 18 mcg Cap For Inhalation INH SCH (08:00)
[2017-03-22 08:27] VITALS: BP 155/82; PULSE 65; RESP 20; TEMP 98.8; O2SAT 95
[2017-03-22] MEDS: Metoprolol Succinate 25 mg XL Tab PO SCH (09:28)
[2017-03-22] MEDS: Pantoprazole 40 mg EC Tab PO SCH (09:28)
[2017-03-22] MEDS ORDERED: Potassium Chloride 20 mEq ER Tab PO ONE (10:00)
--- NOTE | 2017-03-22 13:26 | CP.PCM.PN ---
Subjective - Date & Time of Evaluation Date of Evaluation: 03/22/17 Time of Evaluation: 13:23 - Subjective Subjective: Patient denies having nausea, vomiting, abdominal pain today. She had two formed stools today. She is tolerating a regular diet. Objective - Vital Signs/Intake and Output Vital Signs (last 24 hours): Temp Pulse Resp BP Pulse Ox 98.8 F 65 20 155/82 H 95 03/22/17 08:26 03/22/17 08:26 03/22/17 08:26 03/22/17 08:26 03/22/17 08:26 Intake and Output: 03/22/17 03/22/17 06:59 18:59 Intake Total 800 Balance 800 - Medications Medications: Current Medications Albuterol Sulfate (Albuterol 0.083% Inhal [place] (2.5 Mg/3 Ml) Ud) 2.5 mg INH RQID PRN PRN Reason: Wheezing Allopurinol (Zyloprim) 300 mg PO DAILY PRN PRN Reason: Pain, Mild (1-3) Amlodipine Besylate (Norvasc) 5 mg PO DAILY [facility] Last Admin: 03/22/17 09:28 Dose: 5 mg Aspirin (Ecotrin) 81 mg PO DAILY [facility] Last Admin: 03/22/17 09:28 Dose: 81 mg Heparin Sodium (Porcine) (Heparin) 5,000 units SC Q12 [facility] Last Admin: 03/22/17 09:27 Dose: 5,000 units Metronidazole (Flagyl) 250 mg in 50 mls @ 100 mls/hr IVPB Q8 [facility] Stop: 03/24/17 22:01 Last Admin: 03/22/17 05:11 Dose: 100 mls/hr Dextrose/Sodium Chloride (Dextrose 5%/0.45% Ns 1000 Ml) 1,000 mls @ 75 mls/hr IV .[id number] [facility] Last Admin: 03/22/17 04:48 Dose: Not Given Tigecycline 50 mg/ Sodium (Chloride) 100 mls @ 100 mls/hr IVPB Q12H [facility] Last Admin: 03/22/17 09:27 Dose: 100 mls/hr Losartan Potassium (Cozaar) 100 mg PO DAILY [facility] Last Admin: 03/22/17 09:28 Dose: 100 mg Metoprolol Succinate (Toprol Xl) 25 mg PO DAILY [facility] Last Admin: 03/22/17 09:28 Dose: 25 mg Oxycodone/Acetaminophen (Percocet 5/325 Mg Tab) 1 tab PO Q6H PRN PRN Reason: abdominal pain Stop: 03/22/17 19:28 Last Admin: 03/19/17 19:48 Dose: 1 tab Pantoprazole Sodium (Protonix Ec Tab) 40 mg PO DAILY [facility] Last Admin: 03/22/17 09:28 Dose: 40 mg Rosuvastatin Calcium (Crestor) 10 mg PO HS [facility] Last Admin: 03/21/17 21:25 Dose: Not Given Tiotropium [place] (Spiriva) 18 mcg INH RQ24 [facility] Last Admin: 03/22/17 08:18 Dose: Not Given - Labs Labs: 03/22/17 07:12 03/22/17 07:12 - Constitutional Appears: No Acute Distress - Head Exam Head Exam: ATRAUMATIC, NORMOCEPHALIC - Eye Exam Eye Exam: EOMI Pupil Exam: NORMAL ACCOMODATION - Neck Exam Neck Exam: absent: Lymphadenopathy, Thyromegaly - Respiratory Exam Respiratory Exam: NORMAL BREATHING PATTERN. absent: Rales, Rhonchi, Wheezes - Cardiovascular Exam Cardiovascular Exam: REGULAR RHYTHM, +S1, +S2. absent: Gallop, Rubs, Murmur - GI/Abdominal Exam GI & Abdominal Exam: Soft, Normal Bowel Sounds. absent: Tenderness, Mass, Organomegaly - Rectal Exam Rectal Exam: Deferred - Extremities Exam Extremities Exam: absent: Calf Tenderness, Pedal Edema Assessment and Plan (1) Diverticulitis Assessment & Plan: Patient states that pain has resolved. She is tolerating regular food. Recommend antibiotics as an outpatient for 14 days total. Status: Acute
--- NOTE | 2017-03-22 17:18 | CP.PCM.PN ---
Subjective - Date & Time of Evaluation Date of Evaluation: 03/22/17 Time of Evaluation: 11:00 - Subjective Subjective: Alert, awake, ambulatory, denies pain, tolerating diet. Objective - Vital Signs/Intake and Output Vital Signs (last 24 hours): Temp Pulse Resp BP Pulse Ox 98.8 F 65 20 155/82 H 95 03/22/17 08:26 03/22/17 08:26 03/22/17 08:26 03/22/17 08:26 03/22/17 08:26 Intake and Output: 03/22/17 03/22/17 06:59 18:59 Intake Total 800 1450 Balance 800 1450 - Labs Labs: 03/22/17 07:12 03/22/17 07:12 Assessment and Plan - Assessment and Plan (Free Text) Assessment: Patient is seen and examined. Denies any pain, alert and orientedx3, NAD. Cleared by GI, d/w DR Azevedo, discharge plan for today on doxacycline 100mg po bid for 10 days. To follow up in the office in 1 week.
--- NOTE | 2017-03-23 06:05 | DS ---
HISTORY OF PRESENT ILLNESS: The patient is a 76-year-old female with history of COPD history of diverticulitis in the past. The patient came to the office with complaining of abdominal pain, has been located to the left lower quadrant and also nausea, and no vomiting. The patient also found to have a fever of 100. So, the patient was advised that to go to the emergency room for evaluation. HOSPITAL COURSE: In the emergency room, the patient was had a CAT scan of the abdomen that was positive for diverticulitis. The patient has consult with GI and Dr. Jason, ID. The patient was placed on Cipro and Flagyl, was changed to Tygacil. The abdomen soft. There is no tenderness of the abdomen. Positive bowel sounds. The patient ate well Dr. Jason of the ID has advised to get doxycycline which were to be given for 10 days. Trav Azevedo MD
[2017-03-23] MEDS ORDERED: Potassium Chloride 20 mEq ER Tab PO SCH (10:00)
--- NOTE | 2017-03-24 08:15 | PN ---
DATE: 03/21/2017 SUBJECTIVE: Today the patient is alert, awake, and oriented x3. The patient is seen and examined here and the patient has been having much less pain today in the abdomen and denies any shortness of breath and chest pain. PHYSICAL EXAMINATION VITAL SIGNS: The patient has blood pressure of 126/87, pulse 63, respirations 20, temperature 98.2. NECK: Supple. No JVD. CARDIOPULMONARY: Regular rate and rhythm. Positive murmur. LUNGS: Clear. ABDOMEN: Soft, obese. It shows mild tenderness to the left lower quadrant of the abdomen in the left flank, and there is a big improvement in comparison from yesterday's study and positive bowel sounds. LABORATORY DATA: Blood test done today showed WBC is 4.9, hemoglobin 13, hematocrit 40.9, and platelets 182. Chemistry showed sodium 139, potassium 3.5, chloride 104, bicarb 26, BUN 7, creatinine is 0.8. ASSESSMENT AND PLAN: The plan is that the patient was switched to Tygacil as per *------* Infectious Disease, and we will continue the current medications and continue the antibiotic IV. The case was reviewed and examined with the nurse practitioner Cass Turner and lab is ordered for tomorrow. Trav Azevedo MD
--- NOTE | 2017-03-24 08:19 | PN ---
DATE: 03/22/2017 SUBJECTIVE: Today, the patient is alert and awake, did not have any abdominal pain. No constipation. No chest pain. The patient had a bowel movement and *------* dinner. PHYSICAL EXAMINATION VITAL SIGNS: The patient has a blood pressure of 165/82, pulse is 65, respirations 20, temperature 98.8. NECK: Supple. No JVD. She has some *------* nodules to the thyroid. LUNGS: Clear. HEART: Regular rate and rhythm. ABDOMEN: Soft, nontender. No palpable mass. There is no tenderness. EXTREMITIES: There is no edema. LABORATORY DATA: The patient had blood work today: WBC 5.2, hemoglobin 13.3, hematocrit 41.2, platelet was 180. Chemistry showed sodium 139, potassium 3.1, chloride 103, bicarb is 27, BUN 10, creatinine 0.8, glucose 80. ASSESSMENT AND PLAN: We are going to replace potassium today and 40 mEq of potassium given today and also 20 mEq everyday for 3 days and we will *------* appreciated, so the patient will be discharged on doxycycline. The patient wants to go home today, we will consider discharge today, so I discussed the case with *------*, the nurse practitioner. Trav Azevedo MD
== END 2017-03-22 16:55 | disposition home or self-care (01) | DRG 392 ==
LOC: C.ER 17:24 → C.9E 18:18 → C.3T 21:46
PROVIDERS: ADMIT Specialist; ATTEND Specialist
DX: K57.32 Diverticulitis of large intestine without perforation or abscess without bleeding (principal); J44.9 Chronic obstructive pulmonary disease, unspecified; E03.9 Hypothyroidism, unspecified; I10 Essential (primary) hypertension; H54.7 Unspecified visual loss; E78.00 Pure hypercholesterolemia, unspecified; K21.9 Gastro-esophageal reflux disease without esophagitis; Z88.9 Allergy status to unspecified drugs, medicaments and biological substances; Z90.49 Acquired absence of other specified parts of digestive tract